=== PATIENT | female | born 1960 | race African-American/Black ===

== ENCOUNTER 2017-02-21 09:49 | Emergency (ER) | payer OTHER ==
[~2017-02-21] VITALS: Ht 157.5 cm; Wt 106.6 kg
[~2017-02-21 09:49] MED LIST: CLON1TAB OR; GLYB1.257 PO; LISI-275 PO; MORP15TA68; NOR10T GT
[2017-02-21 10:11] VITALS: BP 142/88
== END 2017-02-21 11:08 | disposition home or self-care (01) ==
LOC: ER 09:53
DX: J20.9 Acute bronchitis, unspecified (principal); J45.909 Unspecified asthma, uncomplicated; E11.9 Type 2 diabetes mellitus without complications; I10 Essential (primary) hypertension; I20.9 Angina pectoris, unspecified; E78.5 Hyperlipidemia, unspecified; Z90.49 Acquired absence of other specified parts of digestive tract

== ENCOUNTER 2017-03-06 12:14 | Emergency (ER) | payer OTHER ==
[~2017-03-06] VITALS: Ht 160 cm; Wt 106.6 kg
[2017-03-06 12:22] VITALS: BP 151/88
[2017-03-06] MEDS ORDERED: KETOROLAC TROMETH 60MG/2ML VIAL IM ONE (15:45)
== END 2017-03-06 17:04 | disposition home or self-care (01) ==
LOC: ER 12:14
DX: J01.90 Acute sinusitis, unspecified (principal); J45.909 Unspecified asthma, uncomplicated; I10 Essential (primary) hypertension; E78.5 Hyperlipidemia, unspecified; Z88.0 Allergy status to penicillin; Z90.49 Acquired absence of other specified parts of digestive tract; Z88.6 Allergy status to analgesic agent; Z88.2 Allergy status to sulfonamides; Z88.8 Allergy status to other drugs, medicaments and biological substances; Z91.041 Radiographic dye allergy status
CPT/HCPCS: 71020; 72110; 96372; 99284; J1885